=== PATIENT | female | born 1940 | race Caucasian/White ===

== ENCOUNTER → 2017-07-03 | Day surgery (SDC) | payer OTHER ==
[~2017-07-03] VITALS: Ht 162.6 cm; Wt 79.8 kg
[~2017-07-03] MED LIST: *morphine SULFATE 10 MG/ML PERIprocedure ONLY ONE; ACETAMINOPHEN 500 MG CPLT PO PRN; ATEN50TA PO; ATOR40TA16 PO; ATROPINE SULFATE 1% OPHT SOLN 2 ML BTL ONE; BALANCED SALT SOLN OPHT IRRIG 15 ML BTL ONE; CHLORHEXIDINE GLUCONATE 2 % 1 PACK (2 CLOTHS) TOPICAL PRN; DEXAMETHASONE SOD PHOS 4 MG/ML VIAL ONE; DIPH25CA PO; DO NOT ADM ANY ANTICOAGULANT DRUGS PRN; EPINEPHrine HCL (1:1000) 1 MG/ML VIAL ONE; LACTATED RINGER'S 1000 ML IV PRN; LEXA20TA PO; METOPROLOL TARTRATE 25 MG TAB PO PRN; ONDANSETRON HCL 4 MG/2 ML VIAL IV PRN; PANT40TA3 PO; PLAV75TA29 PO; POVIDONE IODINE 5% (ANTISEPSIS KIT) 4 APPLICATIONS EACH NARE PRN; PROPOFOL 200 MG/20 ML AMP IV ONE; SODIUM CHLORID 0.9% 500 ML IV PRN; STERILE WATER FOR INJECTION 20 ML VIAL ONE; TOBRAMYCIN/DEXAMETHASONE OPTH OINT 3.5 GM TUBE ONE; TRAZ100T10 PO; TRIA37.53 PO; TRIAMCINOLONE ACETONIDE/PF 40 MG/ML OPTH VIAL ONE; ceFAZolin INJ 1,000 MG VIAL ONE; ePHEDrine/NS 25 MG/5 ML SYRINGE IV ONE; oxyCODONE/ACETAMINOPHEN 5 MG/325 MG TAB PO PRN
[2017-07-03] MEDS: ATROPINE SULFATE 1% OPHT SOLN 5 ML BTL RIGHT EYE SCH ×4 (06:45→07:48)
[2017-07-03] MEDS: PHENYLEPHRINE HCL 2.5% OPTH SOLN 2 ML BTL RIGHT EYE SCH ×3 (07:15→07:48)
[2017-07-03] MEDS: CYCLOPENTOLATE HCL 1% OPHT SOLN 2 ML BTL RIGHT EYE SCH ×3 (07:15→07:48)
[2017-07-03] MEDS: TROPICAMIDE 1% OPHT SOLN 15 ML BTL RIGHT EYE SCH ×3 (07:15→07:48)
[2017-07-03 07:28] LABS: AUTOMATED NEUTROPHIL # 5.5 TH/MM3 (1.8-7.7); BASOPHIL % 0.4 % (0.0-2.0); EOSINOPHIL # 0.2 TH/MM3 (0-0.4); EOSINOPHIL % 2.8 % (0.0-4.0); HEMATOCRIT 34.5 % (35.0-46.0); HEMOGLOBIN 12.1 GM/DL (11.6-15.3); LYMPH % 21.8 % (9.0-44.0); LYMPHOCYTE # 1.8 TH/MM3 (1.0-4.8); MEAN CELL VOLUME 86.2 FL (80.0-100.0); MEAN CORPUSCULAR HEMOGLOBIN 30.1 PG (27.0-34.0); MEAN PLATELET VOLUME 8.5 FL (7.0-11.0); MONO % 6.8 % (0.0-8.0); MONOCYTE # 0.6 TH/MM3 (0-0.9); NEUT % 68.2 % (16.0-70.0); PLATELET COUNT 280 TH/MM3 (150-450); RED CELL DISTRIBUTION WIDTH 13.7 % (11.6-17.2); WHITE BLOOD COUNT 8.1 TH/MM3 (4.0-11.0)
--- NOTE | 2017-07-03 09:53 | MP ---
cc: Sultana Cobb MD DATE OF OPERATION: 07/03/2017 PREOPERATIVE DIAGNOSIS: Visually significant vitreomacular traction, right eye. POSTOPERATIVE DIAGNOSIS: Visually significant vitreomacular traction, right eye. PROCEDURE: Trans pars plana vitrectomy with membranectomy, air/fluid exchange, right eye. SURGEON: Sultana Cobb MD ANESTHESIA: General laryngeal mask anesthesia. Ms. 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 She wished to proceed electively with vitrectomy and air/fluid exchange to try and improve her visual functioning. The risks and benefits of surgery were discussed with the patient, as well as the probability of accelerated cataract formation following the procedure. She wished to proceed, and informed consent was obtained. She was brought to [facility] operating room 1 on the [facility], and appropriate anesthesia monitoring devices were applied. She was placed under general anesthesia using laryngeal mask. The right eye was identified as the operative site and prepped and draped in the usual and sterile fashion. A lid speculum was placed. At this point, an appropriate timeout was called with the surgical team agreeing to the planned procedure and the surgical site. Using the Ronaldo 23-gauge vitrectomy system, the trocar cannulas were placed 4 mm posterior to the limbus after first displacing the conjunctiva and with the beveled entrance, first one was placed at approximately 9 o'clock and verified to be in the posterior chamber. An infusion cannula was affixed to it and was turned on. Two additional trocar cannulas were placed at approximately 10 and 2:30 o'clock. A small amount of Kenalog was introduced into the posterior chamber to allow visualization of the vitreous. Using a flat contact lens for visualization, the eye was entered with the endo-relationship specialist, light pipe and vitrectomy cutter. A core of vitrectomy was carried out, after which the posterior hyaloid was peeled off the posterior pole using aspiration with the vitrectomy cutter. Once the posterior hyaloid had been elevated into the mid periphery, it was removed out into the periphery using the BIOM wide-angle viewing system. The fundus was inspected with the indirect ophthalmoscope and scleral depression. No retinal breaks were found. Using the soft tip linear extrusion needle, a partial air/fluid exchange was performed, after which the trocar cannulas were removed one by one. Tamponade of the site with a cotton swab and to the overlying conjunctival wound. Atropine drops were placed in the cornea, followed by injections of Ancef 125 mg in 0.5 mL and Decadron 2 mg in 0.5 mL. The lid speculum was removed, and the patient was undraped. Tobradex ointment was placed on the cornea ,and then the right eye was patched and shielded. The patient had the laryngeal mask removed in the room, was returned to recovery in good condition, lying on her left side. When awake and alert, she will be asked to begin face-down positioning. MD TANYA Goodson/BRONSON , 09:33 AM , 09:52 AM
[2017-07-03 10:53] VITALS: BP 101/64; PULSE 58; RESP 18; TEMP 97.2; O2SAT 97
--- NOTE | 2017-07-03 10:53 | EKG ---
Date Performed: 07/03/2017 Time Performed: 07:12:23 PTAGE: 76 years EKG: SINUS BRADYCARDIA LOW QRS VOLTAGE IN PRECORDIAL LEADS POSSIBLE ANTERIOR MYOCARDIAL INFARCTI ON , PROBABLY OLD BORDERLINE ECG NO PREVIOUS TRACING DOCTOR: Nir Smith Interpretating Date/Time 07/03/2017 10:50:58
== END | disposition home or self-care (01) ==
LOC: HSDC 06:05
PROVIDERS: ATTEND Ophthalmology
DX: H43.821 Vitreomacular adhesion, right eye (principal); I10 Essential (primary) hypertension
CPT/HCPCS: 00145; 67041; 85025; 93005; J0171; J0690; J1100; J2270; J3010; J3300; J7120